=== PATIENT | female | born 1980 | race Caucasian/White ===

== ENCOUNTER 2023-01-23 10:40 | Emergency (ER) | payer OTHER ==
[2023-01-23 10:51] VITALS: BP 141/63; PULSE 76; RESP 17; TEMP 98.2; BMI 22.4
[2023-01-23] MEDS ORDERED: KETOROLAC TROMETHAMINE 30 MG/1 ML VIAL IM ONE (11:35)
[2023-01-23] MEDS ORDERED: KETOROLAC TROMETHAMINE 30 MG/1 ML VIAL ONE (13:19)
== END 2023-01-23 14:44 | disposition home or self-care (01) ==
LOC: JERFT 10:40
PROC: 3E0233Z Introduction of Anti-inflammatory into Muscle, Percutaneous Approach (ICD-10-PCS; principal; 2023-01-23)
DX: M54.50 Low back pain, unspecified (principal); V49.50XA Passenger injured in collision with unspecified motor vehicles in traffic accident, initial encounter; Y93.I9 Activity, other involving external motion; Y92.521 Bus station as the place of occurrence of the external cause
CPT/HCPCS: 72100-TC-FY; 99284-25